=== PATIENT | male | born 1965 | race Caucasian/White ===

== ENCOUNTER 2020-07-02 10:47 | Day surgery (SDC) | payer OTHER, BC ==
[~2020-07-02] VITALS: Ht 177.8 cm; Wt 88.0 kg
[~2020-07-02 10:47] MED LIST: ALBU90OI INH; ALLEGRA ALLERG180 M1 PO; IPRATROPIUM BRO30 ML; TIOT18 INH
[2020-07-02] MEDS ORDERED: FISH OIL 1,2001 EAC7 PO (11:50)
[2020-07-02] MEDS ORDERED: IBUP400 PO (11:51)
--- NOTE | 2020-07-02 16:00 | NUR ---
Ambulatory in Day SurgeryPatient up to Ambulate independently. Gait steady. Discharge instructions reviewed with patient. Patient verbalizes understanding. Copy given to patient to take home.Lungs clear T/O to Auscultation. Patient States Post-Procedure ride home has been arranged. Discharged via wheelchair to private car for ride home.PATIENT'S SPOUSE DROVE THE PATIENT HOME
== END 2020-07-02 16:03 | disposition home or self-care (01) ==
LOC: ORSCMMR 10:47 → ORD 12:30 → ORSCMMR 16:03
PROVIDERS: Orthopaedic Surgery
PROC: 0LM40ZZ Reattachment of Left Upper Arm Tendon, Open Approach (ICD-10-PCS; principal; 2020-07-02 12:30)
DX: S46.292A Other injury of muscle, fascia and tendon of other parts of biceps, left arm, initial encounter (principal); J45.909 Unspecified asthma, uncomplicated; K21.9 Gastro-esophageal reflux disease without esophagitis; Z79.899 Other long term (current) drug therapy
CPT/HCPCS: A9270; C1713; J0171; J0690; J1100; J1885; J2250; J2370; J2405; J2704; J2710; J3010; J7120

== ENCOUNTER 2021-12-22 11:18 | Day surgery (SDC) | payer BC ==
[~2021-12-22] VITALS: Ht 172.7 cm; Wt 87.3 kg
[~2021-12-22 11:18] MED LIST changes: +Crestor20 MG PO; +FISH OIL 1,2001 EAC7 PO; +IBUP400 PO; +LISI20 PO; +TESTOSTERONE75 G1 TOP
--- NOTE | 2021-12-22 12:17 | NUR ---
IV INFUSING BUT PT VERY PAINFUL NO INFILTRATE NOTED EASY FLUSH BUT PT UNABLE TO TOLERATE SITE IV DCD INTACT REPLACED IV IN RT UPPER ARM PT TOLERATING MUCH BETTER
--- NOTE | 2021-12-22 13:12 | NUR ---
12/22/21 1311 S[address]S History, Chart, Medications and Allergies reviewed before start of procedure. Patient confirms NPO status and agrees with scheduled surgery. 3-LEAD EKG REVIEWED WITH PHYSICIAN PRIOR TO START OF PROCEDURE. MONITOR INTACT WITH CONTINUOUS PULSE OXIMETRY AND INTERMITTENT BP. PATIENT DETERMINED TO BE ASA APPROPRIATE FOR PROPOFOL SEDATION PRIOR TO START OF PROCEDURE BY DR. RAM. 02 VIA NASAL CANNULA.
--- NOTE | 2021-12-22 13:50 | NUR ---
Discharge instructions reviewed with patient. Patient verbalizes understanding. Copy given to patient to take home. PA PO WELL. IV DC'D.
== END 2021-12-22 13:55 | disposition home or self-care (01) ==
LOC: ORSCMMR 11:18 → ORD 13:00 → ORSCMMR 13:00
PROVIDERS: Surgery
PROC: 0DJD8ZZ Inspection of Lower Intestinal Tract, Via Natural or Artificial Opening Endoscopic (ICD-10-PCS; principal; 2021-12-22 13:00)
DX: Z12.11 Encounter for screening for malignant neoplasm of colon (principal); Z86.010 Personal history of colon polyps; F41.9 Anxiety disorder, unspecified; F32.A Depression, unspecified; I10 Essential (primary) hypertension; J45.909 Unspecified asthma, uncomplicated; E78.5 Hyperlipidemia, unspecified; Z79.899 Other long term (current) drug therapy
CPT/HCPCS: J2704; J7120

== ENCOUNTER 2022-02-14 11:25 | Day surgery (SDC) | payer BC ==
[~2022-02-14] VITALS: Ht 177.8 cm; Wt 86.7 kg
--- NOTE | 2022-02-14 15:37 | NUR ---
02/14/[address] INTO SEE PT AT 1530. PT REPORTS NO PAIN IN RIGHT SHOULDER
== END 2022-02-14 16:51 | disposition home or self-care (01) ==
LOC: ORSCSDS 11:25
PROVIDERS: Orthopaedic Surgery
PROC: 0LS34ZZ Reposition Right Upper Arm Tendon, Percutaneous Endoscopic Approach (ICD-10-PCS; principal; 2022-02-14 13:00)
PROC: 0RNJ4ZZ Release Right Shoulder Joint, Percutaneous Endoscopic Approach (ICD-10-PCS; principal; 2022-02-14 13:00)
PROC: 0LM14ZZ Reattachment of Right Shoulder Tendon, Percutaneous Endoscopic Approach (ICD-10-PCS; principal; 2022-02-14 13:00)
DX: M75.121 Complete rotator cuff tear or rupture of right shoulder, not specified as traumatic (principal); M75.21 Bicipital tendinitis, right shoulder; M75.41 Impingement syndrome of right shoulder; I10 Essential (primary) hypertension; J45.909 Unspecified asthma, uncomplicated; E78.00 Pure hypercholesterolemia, unspecified; Z79.899 Other long term (current) drug therapy
CPT/HCPCS: C1713; J0171; J0690; J1100; J2250; J2370; J2405; J2704; J3010

== ENCOUNTER → 2023-05-28 | Outpatient (CLI) | payer BC | LOC: LAB 16:19 → LAB SHORT 16:19 | PROVIDERS: Family Medicine | DX: Z12.5 Encounter for screening for malignant neoplasm of prostate (principal); Z11.59 Encounter for screening for other viral diseases | CPT/HCPCS: 86803; G0103 ==

== ENCOUNTER 2023-11-03 17:11 | Emergency (ER) | payer BC ==
[~2023-11-03] VITALS: Ht 182.9 cm; Wt 93.9 kg
[2023-11-03] MEDS ORDERED: TRAZ50 PO (19:01)
[2023-11-03] MEDS ORDERED: TADALAFIL5 M1 PO (19:01)
[2023-11-03] MEDS ORDERED: FAMO10 PO (19:01)
[2023-11-03 19:45] VITALS: BP 139/95
[2023-11-03] MEDS ORDERED: Ciprofloxacin 500 MG Tab PO ONE (20:00)
[2023-11-03] MEDS ORDERED: CIPR500 PO (20:02)
== END 2023-11-03 20:11 | disposition home or self-care (01) ==
LOC: ER 17:11
DX: N45.3 Epididymo-orchitis (principal); N52.9 Male erectile dysfunction, unspecified; I10 Essential (primary) hypertension; K21.9 Gastro-esophageal reflux disease without esophagitis; E78.00 Pure hypercholesterolemia, unspecified; Z79.890 Hormone replacement therapy; Z79.899 Other long term (current) drug therapy
CPT/HCPCS: 76870; A9270

== ENCOUNTER → 2024-06-20 | Outpatient (CLI) | payer BC ==
[~2024-06-20] MED LIST changes: +CIPR500 PO; +FAMO10 PO; +TADALAFIL5 M1 PO; +TRAZ50 PO
[2024-06-20 19:31] LABS: BASOPHILS ABSOLUTE AUTO 0.04 K/mm3 (0.00-0.23); BASOPHILS PERCENT AUTO 1 % (0-2); EOSINOPHILS ABSOLUTE AUTO 0.15 K/mm3 (0.00-0.68); EOSINOPHILS PERCENT AUTO 2 % (0-6); Hematocrit 43.8 % (37.0-53.0); Hemoglobin 15.3 g/dL (13.5-17.5); IMMATURE GRAN ABSOLUTE AUTO 0.04 K/mm3 (0.00-0.10); IMMATURE GRAN PERCENT AUTO 1 % (0-1); LYMPHOCYTES ABSOLUTE AUTO 1.68 K/mm3 (0.84-5.20); LYMPHOCYTES PERCENT AUTO 22 % (21-46); MONOCYTES ABSOLUTE AUTO 0.68 K/mm3 (0.16-1.47); MONOCYTES PERCENT AUTO 9 % (4-13); Mean Corpuscular HGB 30.7 pg (26.0-34.0); Mean Corpuscular HGB Conc 34.9 g/dL (31.5-36.5); Mean Corpuscular Volume 88 fL (80-100); Mean Platelet Volume 10.3 fL (9.1-12.4); NEUTROPHILS ABSOLUTE AUTO 4.99 K/mm3 (1.96-9.15); NEUTROPHILS PERCENT AUTO 66 % (41-73); Platelet Count 203 K/mm3 (150-400); RDW Coefficient Variation 12.3 % (11.7-14.2); RDW Standard Deviation 39.4 fL (35.1-46.3); Red Blood Cell Count 4.99 M/mm3 (4.30-5.90); White Blood Cell Count 7.58 K/mm3 (4.00-11.30)
[2024-06-20 19:40] LABS: Albumin, Blood 4.1 g/dL (3.4-5.0); Albumin/Globulin Ratio 1.3 (0.8-1.8); Alk Phos 85 U/L (50-136); Anion Gap 10 mmol/L (3-11); Aspartate Aminotrans (AST/SGOT 24 U/L (12-37); Bilirubin, Total 0.4 mg/dL (0.1-1.0); Blood Urea Nitrogen 12 mg/dL (8-24); Bun/Creatinine Ratio 11.9 (12.0-20.0); CHOL/HDL RATIO 4.9; CO2, Blood 24 mmol/L (21-32); Calcium, Blood 9.3 mg/dL (8.5-10.1); Chloride, Blood 107 mmol/L (98-108); Cholesterol 181 mg/dL (50-200); Creatinine, Blood 1.01 mg/dL (0.60-1.20); Globulin, Blood 3.2 g/dL (2.2-4.0); Glomerular Filtration Rate 85 (60-); Glucose, Blood 106 mg/dL (70-99); HDL Cholesterol 37 mg/dL (>39); LDL/HDL RATIO 2.1; Low Density Lipoprotein Chol 78 mg/dL (0-110); Potassium, Blood 4.1 mmol/L (3.5-5.5); Sodium, Blood 137 mmol/L (136-145); Total Protein, Blood 7.3 g/dL (6.4-8.2); Triglycerides 328 mg/dL (30-160); Very Low Density Lipoprot Chol 65 mg/dL (6-32)
[2024-06-20 19:42] LABS: Alanine Aminotransfer (ALT/SGP 44 U/L (12-78)
[2024-06-24 12:18] LABS: HIV 1,2 COMBO ANTIGEN/ANTIBODY Negative (Negative)
== END ==
LOC: LAB SHORT 18:44 → LAB 18:44
PROVIDERS: Family Medicine
DX: Z11.4 Encounter for screening for human immunodeficiency virus [HIV] (principal); E66.3 Overweight; I10 Essential (primary) hypertension
CPT/HCPCS: 80053; 80061; 85025; 87389

== ENCOUNTER 2024-07-05 16:16 | Emergency (ER) | payer BC ==
[~2024-07-05] VITALS: Ht 180.3 cm; Wt 95.2 kg
[2024-07-05 16:22] VITALS: BP 143/100
[2024-07-05] MEDS ORDERED: Ketorolac Tromethamine 15mg Vial IM ONE (16:50)
== END 2024-07-05 19:16 | disposition home or self-care (01) ==
LOC: ER 16:16
DX: S86.111A Strain of other muscle(s) and tendon(s) of posterior muscle group at lower leg level, right leg, initial encounter (principal); I10 Essential (primary) hypertension; Z79.899 Other long term (current) drug therapy; X50.1XXA Overexertion from prolonged static or awkward postures, initial encounter
CPT/HCPCS: 76882; 96372; 99283-25; J1885

== ENCOUNTER → 2025-03-24 | Outpatient (CLI) | payer BC ==
[2025-03-24 14:53] LABS: BASOPHILS ABSOLUTE AUTO 0.03 K/mm3 (0.00-0.23); BASOPHILS PERCENT AUTO 1 % (0-2); EOSINOPHILS ABSOLUTE AUTO 0.11 K/mm3 (0.00-0.68); EOSINOPHILS PERCENT AUTO 2 % (0-6); Hematocrit 41.9 % (37.0-53.0); Hemoglobin 14.1 g/dL (13.5-17.5); IMMATURE GRAN ABSOLUTE AUTO 0.03 K/mm3 (0.00-0.10); IMMATURE GRAN PERCENT AUTO 1 % (0-1); LYMPHOCYTES ABSOLUTE AUTO 1.00 K/mm3 (0.84-5.20); LYMPHOCYTES PERCENT AUTO 16 % (21-46); MONOCYTES ABSOLUTE AUTO 0.60 K/mm3 (0.16-1.47); MONOCYTES PERCENT AUTO 10 % (4-13); Mean Corpuscular HGB Conc 33.7 g/dL (31.5-36.5); Mean Corpuscular Volume 91 fL (80-100); NEUTROPHILS ABSOLUTE AUTO 4.50 K/mm3 (1.96-9.15); NEUTROPHILS PERCENT AUTO 72 % (41-73); NRBC ABSOLUTE 0.00 K/mm3 (0.00-0.02); NRBC Auto 0.0 /100 WBC (0.0-0.2); Platelet Count 193 K/mm3 (150-400); RDW Coefficient Variation 12.7 % (11.7-14.2); RDW Standard Deviation 42.2 fL (35.1-46.3)
[2025-03-24 21:16] LABS: CHOL/HDL RATIO 7.8; Cholesterol 297 mg/dL (50-200); HDL Cholesterol 38 mg/dL (>39); LDL/HDL RATIO 5.1; Low Density Lipoprotein Chol 193 mg/dL (0-110); Triglycerides 330 mg/dL (30-160); Very Low Density Lipoprot Chol 66 mg/dL (6-32)
== END | disposition home or self-care (01) ==
LOC: LAB SHORT 12:39 → LAB 12:39
PROVIDERS: Family Medicine
DX: E78.2 Mixed hyperlipidemia (principal); K92.1 Melena
CPT/HCPCS: 80061; 85025

== ENCOUNTER → 2025-07-02 | Outpatient (CLI) | payer BC ==
[2025-07-02 15:56] LABS: Alanine Aminotransfer (ALT/SGP 43 U/L (12-78); Albumin, Blood 4.4 g/dL (3.4-5.0); Albumin/Globulin Ratio 1.5 (0.8-1.8); Anion Gap 9 mmol/L (3-11); Aspartate Aminotrans (AST/SGOT 22 U/L (12-37); Bilirubin, Total 0.4 mg/dL (0.1-1.0); Blood Urea Nitrogen 13 mg/dL (8-24); CHOL/HDL RATIO 5.3; CO2, Blood 26 mmol/L (21-32); Calcium, Blood 9.1 mg/dL (8.5-10.1); Chloride, Blood 102 mmol/L (98-108); Cholesterol 207 mg/dL (50-200); Creatinine, Blood 0.93 mg/dL (0.60-1.20); Globulin, Blood 3.0 g/dL (2.2-4.0); Glucose, Blood 101 mg/dL (70-99); HDL Cholesterol 39 mg/dL (>39); Potassium, Blood 4.5 mmol/L (3.5-5.5); Sodium, Blood 132 mmol/L (136-145); Total Protein, Blood 7.4 g/dL (6.4-8.2); Triglycerides 414 mg/dL (30-160); Very Low Density Lipoprot Chol Unable to Calculate mg/dL (6-32)
[2025-07-02 16:09] LABS: LDL/HDL RATIO Unable to Calculate; Low Density Lipoprotein Chol Unable to Calculate mg/dL (0-110)
[2025-07-02 16:22] LABS: LDL Direct Measurement 142 mg/dL (0-130)
== END ==
LOC: LAB 13:05 → LAB SHORT 13:05
PROVIDERS: Family Medicine
DX: E78.2 Mixed hyperlipidemia (principal); K21.9 Gastro-esophageal reflux disease without esophagitis; K92.1 Melena; R10.13 Epigastric pain
CPT/HCPCS: 80053; 80061; 83036; 83721

== ENCOUNTER 2025-08-06 11:43 | Observation (INO) | payer BC ==
[~2025-08-06] VITALS: Ht 182.9 cm; Wt 101.6 kg
[2025-08-06 12:20] LABS: BASOPHILS ABSOLUTE AUTO 0.06 K/mm3 (0.00-0.23); BASOPHILS PERCENT AUTO 1 % (0-2); EOSINOPHILS ABSOLUTE AUTO 0.20 K/mm3 (0.00-0.68); EOSINOPHILS PERCENT AUTO 2 % (0-6); Hematocrit 43.6 % (37.0-53.0); Hemoglobin 14.7 g/dL (13.5-17.5); IMMATURE GRAN ABSOLUTE AUTO 0.08 K/mm3 (0.00-0.10); IMMATURE GRAN PERCENT AUTO 1 % (0-1); LYMPHOCYTES ABSOLUTE AUTO 1.43 K/mm3 (0.84-5.20); LYMPHOCYTES PERCENT AUTO 17 % (21-46); MONOCYTES ABSOLUTE AUTO 0.75 K/mm3 (0.16-1.47); MONOCYTES PERCENT AUTO 9 % (4-13); Mean Corpuscular HGB Conc 33.7 g/dL (31.5-36.5); Mean Corpuscular Volume 91 fL (80-100); NEUTROPHILS ABSOLUTE AUTO 6.00 K/mm3 (1.96-9.15); NEUTROPHILS PERCENT AUTO 71 % (41-73); NRBC ABSOLUTE 0.00 K/mm3 (0.00-0.02); NRBC Auto 0.0 /100 WBC (0.0-0.2); Platelet Count 224 K/mm3 (150-400); RDW Coefficient Variation 12.1 % (11.7-14.2); RDW Standard Deviation 40.5 fL (35.1-46.3)
[2025-08-06 12:44] LABS: Alanine Aminotransfer (ALT/SGP 43.0 U/L (12-78); Albumin, Blood 4.0 g/dL (3.4-5.0); Albumin/Globulin Ratio 1.4 (0.8-1.8); Anion Gap 9.0 mmol/L (3-11); Aspartate Aminotrans (AST/SGOT 21.0 U/L (12-37); Bilirubin, Total 0.3 mg/dL (0.1-1.0); Blood Urea Nitrogen 12.0 mg/dL (8-24); CO2, Blood 25.0 mmol/L (21-32); Calcium, Blood 8.8 mg/dL (8.5-10.1); Chloride, Blood 104.0 mmol/L (98-108); Creatinine, Blood 1.15 mg/dL (0.60-1.20); Globulin, Blood 2.8 g/dL (2.2-4.0); Glucose, Blood 149.0 mg/dL (70-99); Potassium, Blood 4.2 mmol/L (3.5-5.5); Sodium, Blood 134.0 mmol/L (136-145); Total Protein, Blood 6.8 g/dL (6.4-8.2)
[2025-08-06 12:55] LABS: pH Blood Venous 7.36 (7.34-7.37)
[2025-08-06 13:36] LABS: Influenza A, PCR NEGATIVE (NEGATIVE); Influenza B, PCR NEGATIVE (NEGATIVE); Resp Syncytial Virus, PCR NEGATIVE (NEGATIVE); SARS-Cov-2 (COVID-19) PCR, MMC NEGATIVE (NEGATIVE)
[2025-08-06] MEDS ORDERED: NS 1,000 ML IV SCH (14:05)
[2025-08-06] MEDS ORDERED: Magnesium Hydroxide Conc 10 ML UDC PO PRN (16:20)
[2025-08-06] MEDS ORDERED: FLU VACC TS2025-26(6MOS UP)/PF 45 MCG/0.5 ML SYRINGE IM SCH (16:20)
[2025-08-06 17:15] VITALS: BP 146/107
[2025-08-06] MEDS ORDERED: OMEP20ER PO (17:31)
--- NOTE | 2025-08-06 18:19 | NUR ---
ADMISSION PT ADMITTED TO UNIT FROM ER @ APPROX 1712. VITALS OBTAINS. BLOOD PRESSURE AND HR ELEVATED. NO TELE ORDERS. RN CONTACTED HOSPITALIST AND NOTIFIED OF VITALS, NO NEW ORDERS RE VITALS AT THIS TIME. DID OBTAIN ORDERS FOR TELE AND CPAP FOR KALIE. PT DENIES PAIN. UP TO BR c SBA - PT DENIES DIZZINESS/LIGHTHEADEDNESS AT THIS TIME. INSTRUCTED PT RE IMPORTANCE OF CALLING BEFORE GETTING UP DUE TO BEING SYMPTOMATIC c AMBULATION. TELE PLACED ON PT - ST @ 112, PT DENIES CHEST PAIN OR SOB. ADMIT COMPLETED INCLUDING MED REC. ORIENTED PT TO CALL SYSTEM AND NO SMOKING/IGNITION POLICY. PT CURRENTLY RESTING IN BED WITH CALL LIGHT IN REACH AND BED IN LOWEST POSITION. PT APPEARS COMOFRTABLE AND IN NO DISTRESS. WILL REPORT TO ONCOMING RN/SHOTBLAST OPERATOR.
[2025-08-06 20:01] VITALS: BP 147/93
[2025-08-06 23:23] VITALS: BP 140/88
--- NOTE | 2025-08-07 03:55 | NUR ---
SHIFT SUMMARY PATIENT IS ALERT AND ORIENTED. PATIENT HAS HAD NO ACUTE EVENTS THIS SHIFT. PATIENT HAS HAD NO EVENTS ON TELE. PATIENT HAS WORN CPAP WITH NO INCIDENTS THIS SHIFT. PATIENT HAS NO COMPLAINTS OF DIZZINESS OR LIGHTHEADEDNESS. PATIENT HAS NO COMPLAINTS OF SOB, NAUSEA, VOMITTING OR PAIN THIS SHIFT. PATIENT HAS BEEN SLEEPING MOST OF SHIFT WITH NO COMPLAINTS. CALL LIGHT IN PLACE.
[2025-08-07 04:37] VITALS: BP 126/84
[2025-08-07 07:44] VITALS: BP 143/88
[2025-08-07 11:18] VITALS: BP 136/91
--- NOTE | 2025-08-07 11:43 | NUR ---
TELE REMOVED AND SENT BACK TO PCU THROUGH TUBE SYSTEM
--- NOTE | 2025-08-07 11:51 | NUR ---
DISCHARGE NOTE: WENT OVER DISCHARGE WITH THE PATIENT. IV AND TELE REMOVED. PATIENT GOT HIMSELF DRESSED. PATIENT WHEELED DOWN BY CAUSTIC ROOM ATTENDANT. NO SIGNS OR SYMPTOMS OF DISTRESS DURING DISCHARGE.
== END 2025-08-07 12:02 | disposition home or self-care (01) ==
LOC: ER 11:43 → MEDS 11:44 → ENPENDDIS 08-07 11:19 → MEDS 08-07 12:02
PROVIDERS: Emergency Medicine; Physician Assistant; ADMIT Internal Medicine
DX: I47.19 Other supraventricular tachycardia (principal); E78.5 Hyperlipidemia, unspecified; K21.9 Gastro-esophageal reflux disease without esophagitis; I10 Essential (primary) hypertension; J45.909 Unspecified asthma, uncomplicated; Z79.899 Other long term (current) drug therapy; Z87.891 Personal history of nicotine dependence
CPT/HCPCS: 70450; 71046; 80053; 82803; 83735; 83880; 84439; 84443; 84481; 84484; 85025; 85379; 87637; 93005; 93010; 94762; 96360; 96361; 99285-25; A9270; G0378; J7030; J7120